=== PATIENT | female | born 1955 | race Caucasian/White ===

== ENCOUNTER → 2018-09-30 | Outpatient (CLI) | payer OTHER ==
[2018-09-30 13:23] LABS: ALBUMIN 3.6 g/dL (3.4-5.0); CALCIUM 9.7 mg/dL (8.5-10.1); CREATININE 0.9 mg/dL (0.6-1.3); POTASSIUM 4.2 mmol/L (3.5-5.1); TOTAL BILIRUBIN 0.3 mg/dL (<0.1-1.0); TOTAL PROTEIN 7.2 g/dL (6.4-8.2)
== END ==
LOC: M.LAB 09-27 12:30 → M.MRI 09-27 13:30 → M.LAB 12:30
PROVIDERS: Psychiatry & Neurology Neuromuscular Medicine
DX: Z12.31 Encounter for screening mammogram for malignant neoplasm of breast (principal); R90.82 White matter disease, unspecified; R56.9 Unspecified convulsions; Z86.61 Personal history of infections of the central nervous system

== ENCOUNTER → 2018-10-12 | Outpatient (CLI) | payer OTHER ==
--- NOTE | 2018-10-17 12:29 | EEG ---
[address] [address] EEG STUDY REPORT Name: SANTHOSH SCHULER Room: [facility]#: [id number] Admission: 10/12/18 Attend Phys: Yogesh Livingston MD Discharge: Date of : 57 Report #: [id number] THIS REPORT FOR: //name// CC: Eliska. Josh Livingston This patient has a history of meningitis. EEG is being done to evaluate the possibility of seizure. EEG was done by placing the electrode by standard 10-20 system of electrode placement. Both referential and sequential montages were used for recording. The background activity in this patient's EEG is about 10 Hz and 30 microvolts. The patient goes to sleep that is associated with bilaterally symmetrical sleep spindle and vertex sharp waves. Photic stimulation was unremarkable. Throughout the record, no active epileptiform activity was noticed. IMPRESSION: This patient's EEG does not demonstrate any clear-cut epileptiform activity. Thank you very much for this referral. <ELECTRONICALLY SIGNED> By: Yogesh Livingston MD 10/17/18 1229 [id number] Livingston MD /nt
== END ==
LOC: M.CRD 13:44
DX: R56.9 Unspecified convulsions (principal)